=== PATIENT | male | born 1950 | race Caucasian/White ===

== ENCOUNTER 2017-08-20 23:45 | Inpatient (IN) ==
[2017-08-21] MEDS ORDERED: ASPIRIN 325 MG TABLET PO STA (00:56)
[2017-08-21] MEDS ORDERED: NITROGLYCERIN 2% OINT 1 INCH/GM PACK TOP STA (00:58)
[2017-08-21] MEDS ORDERED: MEPERIDINE 25 MG/1 ML VIAL IV STA ×2 (00:58→01:38)
[2017-08-21] MEDS ORDERED: NITROGLYCERIN 2% OINT 1 INCH/GM PACK TOP ONE ×2 (01:24→01:38)
[2017-08-21] MEDS ORDERED: ASPIRIN 325 MG TABLET ONE ×2 (01:25→01:38)
[2017-08-21] MEDS ORDERED: MEPERIDINE 25 MG/1 ML VIAL ONE ×2 (01:25→01:38)
[2017-08-21] MEDS ORDERED: MAGNESIUM SULF RIDER 2 GM in PREMIX 1 EACH IV PRN ×2 (02:21→09:48)
[2017-08-21] MEDS ORDERED: MAGNESIUM SULF RIDER 4 GM in PREMIX 1 EACH IV PRN (02:21)
[2017-08-21 02:23] LABS: Basophils % 0.5 % (0.0-0.8); Eosinophils # 0.1 10*3/uL (0.0-0.87); Eosinophils % 2.6 % (0.00-10.9); Hematocrit 32.2 VOL% (42.0-52.0); Hemoglobin 10.3 GM/DL (14.0-18.0); Immature Granulocytes % 0.2 %; Immature Granulocytes Absolute 0.01 #; Lymphocytes # 1.3 10*3/uL (1.4-4.0); Lymphocytes % 31.3 % (21.2-54.2); Mean Corpuscular Hemoglobin 25 PG (27-34); Mean Corpuscular Volume 76.5 FL (87-102); Mean Platelet Volume 10.5 FL (9.6-12.0); Monocytes # 0.3 10*3/uL (0.11-0.8); Monocytes % 7.4 % (1.7-12.7); Neutrophils # 2.4 10*3/uL (1.4-7.4); Platelet Count 163 T/CUMM (130-400); Red Blood Count 4.21 MC/CUMM (3.8-5.5); Red Cell Distribution Width 14.6 % (9.3-17.3); White Blood Count 4.2 T/CUMM (4-12)
[2017-08-21 02:31] LABS: Bilirubin,Total 0.5 MG/DL (0.2-1.0); Calcium 9.3 MG/DL (8.5-10.1); Osmolality,Calculated 284.4 MOS/KG (273-304); Potassium 3.7 MMOL/L (3.5-5.1)
[2017-08-21] MEDS: MEPERIDINE 50 MG/1 ML VIAL IV PRN ×4 (05:43→20:45)
[2017-08-21] MEDS ORDERED: NITROGLYCERIN SL 0.4 MG TABLET SL PRN (08:41)
[2017-08-21] MEDS ORDERED: CLOPIDOGREL 75 MG TABLET PO SCH ×2 (09:00→09:15)
[2017-08-21 09:14] LABS: Risk Ratio 3.34; VLDL CHOLESTEROL 26.8 MG/DL
[2017-08-21] MEDS ORDERED: POTASSIUM CHLORIDE RIDER 10 MEQ in PREMIX 1 EACH IV PRN (09:48)
[2017-08-21] MEDS ORDERED: diphenhydrAMINE CAP 25 MG CAPSULE PO ONE (09:48)
[2017-08-21] MEDS ORDERED: DIAZEPAM 5 MG TABLET PO ONE (09:48)
[2017-08-21] MEDS ORDERED: ACETAMINOPHEN 325 MG TABLET PO PRN (09:50)
[2017-08-21] MEDS ORDERED: ONDANSETRON 4 MG/2 ML VIAL IV PRN (09:50)
[2017-08-21] MEDS ORDERED: diphenhydrAMINE CAP 25 MG CAPSULE PO PRN (09:50)
[2017-08-21] MEDS ORDERED: DOCUSATE SODIUM 100 MG CAPSULE PO PRN (09:50)
[2017-08-21] MEDS ORDERED: ZALEPLON 5 MG CAPSULE PO PRN (09:50)
[2017-08-21] MEDS ORDERED: guaiFENesin/DM ER 600-30 MG TABLET PO PRN (09:50)
[2017-08-21] MEDS ORDERED: diphenhydrAMINE CAP 50 MG CAPSULE ONE (09:52)
[2017-08-21] MEDS ORDERED: DIAZEPAM 5 MG TABLET ONE (09:53)
[2017-08-21] MEDS: ATORVASTATIN 40 MG TABLET PO SCH (09:56)
[2017-08-21] MEDS: MAGNESIUM OXIDE 400 MG TABLET PO SCH ×2 (09:56→20:44)
[2017-08-21] MEDS: ASPIRIN EC 81 MG TABLET PO SCH (09:56)
[2017-08-21] MEDS: amLODIPine 10 MG TABLET PO SCH (09:56)
[2017-08-21] MEDS: GLIMEPIRIDE 4 MG TABLET PO SCH (09:56)
[2017-08-21 10:08] LABS: INR 1.1; PT Patient Result 11.4 SECS
[2017-08-21] MEDS: DESVENLAFAXINE 50 MG TABLET PO SCH (10:38)
[2017-08-21] MEDS: FENOFIBRATE 160 MG TABLET PO SCH (10:38)
[2017-08-21] MEDS: INSULIN GLARGINE 100 UNIT/ML SUBCUT SCH (10:38)
[2017-08-21] MEDS: RAMIPRIL 5 MG CAPSULE PO SCH (10:38)
[2017-08-21] MEDS: POLYETHYLENE GLYCOL POWDER 17 GM PACK PO SCH (10:42)
[2017-08-21] MEDS ORDERED: MIDAZOLAM 2 MG/2 ML VIAL ONE (11:21)
[2017-08-21] MEDS ORDERED: HYDROmorphone 2 MG/1 ML VIAL ONE (11:21)
[2017-08-21] MEDS ORDERED: NITROGLYCERIN DRIP 50 MG/250 ML BOTTLE IV ONE (11:26)
[2017-08-21] MEDS ORDERED: VERAPAMIL 5 MG/2 ML VIAL ONE (11:26)
[2017-08-21] MEDS ORDERED: ENOXAPARIN 30 MG/0.3 ML SYRINGE ONE (11:30)
[2017-08-21] MEDS ORDERED: BIVALIRUDIN 250 MG VIAL IV ONE (11:34)
[2017-08-21] MEDS ORDERED: CLOPIDOGREL 300 MG TABLET ONE (11:50)
[2017-08-21] MEDS ORDERED: SODIUM CHLORIDE 0.9% 1,000 ML IV SCH (12:00)
[2017-08-21] MEDS: SODIUM CHLORIDE 0.45% 1,000 ML IV SCH ×2 (12:32→17:24)
[2017-08-21] MEDS: METHADONE 10 MG TABLET PO SCH ×2 (14:05→23:25)
[2017-08-21] MEDS: ALPRAZolam 0.5 MG TABLET PO PRN (20:45)
[2017-08-21] MEDS: MORPHINE ER 30 MG TABLET PO SCH (20:49)
[2017-08-22] MEDS: SODIUM CHLORIDE 0.45% 1,000 ML IV SCH ×2 (01:56→10:38)
[2017-08-22] MEDS: MEPERIDINE 50 MG/1 ML VIAL IV PRN (05:01)
[2017-08-22 05:35] LABS: Basophils % 0.9 % (0.0-0.8); Eosinophils # 0.1 10*3/uL (0.0-0.87); Eosinophils % 2.9 % (0.00-10.9); Hematocrit 31.1 VOL% (42.0-52.0); Immature Granulocytes % 0.3 %; Immature Granulocytes Absolute 0.01 #; Lymphocytes # 1.5 10*3/uL (1.4-4.0); Lymphocytes % 44.1 % (21.2-54.2); Mean Corpuscular HGB Conc 32.2 GM/DL (32-36); Mean Corpuscular Hemoglobin 24 PG (27-34); Mean Corpuscular Volume 75.7 FL (87-102); Monocytes # 0.3 10*3/uL (0.11-0.8); Monocytes % 7.8 % (1.7-12.7); Neutrophils # 1.5 10*3/uL (1.4-7.4); Platelet Count 142 T/CUMM (130-400); Red Blood Count 4.11 MC/CUMM (3.8-5.5); Red Cell Distribution Width 14.5 % (9.3-17.3); White Blood Count 3.5 T/CUMM (4-12)
[2017-08-22 06:16] LABS: Blood Urea Nitrogen 13 MG/DL (7-18); Glucose 176 MG/DL (74-106); Magnesium 1.6 MG/DL (1.8-2.4); Osmolality,Calculated 280.5 MOS/KG (273-304); Potassium 3.8 MMOL/L (3.5-5.1); Sodium 139 MMOL/L (136-145); Troponin I Only < 0.015 NG/ML (0.00-0.045)
[2017-08-22] MEDS: METHADONE 10 MG TABLET PO SCH (06:23)
[2017-08-22] MEDS ORDERED: PANTOPRAZOLE 40 MG TABLET PO SCH (09:00)
[2017-08-22] MEDS ORDERED: CLOPIDOGREL 75 MG TABLET PO SCH (09:00)
[2017-08-22] MEDS: RAMIPRIL 5 MG CAPSULE PO SCH (09:19)
[2017-08-22] MEDS: GLIMEPIRIDE 4 MG TABLET PO SCH (09:19)
[2017-08-22] MEDS: FENOFIBRATE 160 MG TABLET PO SCH (09:19)
[2017-08-22] MEDS: MAGNESIUM OXIDE 400 MG TABLET PO SCH (09:19)
[2017-08-22] MEDS: amLODIPine 10 MG TABLET PO SCH (09:20)
[2017-08-22] MEDS: ASPIRIN EC 81 MG TABLET PO SCH (09:20)
[2017-08-22] MEDS: DESVENLAFAXINE 50 MG TABLET PO SCH (09:20)
[2017-08-22] MEDS: INSULIN GLARGINE 100 UNIT/ML SUBCUT SCH (09:21)
[2017-08-22] MEDS: POLYETHYLENE GLYCOL POWDER 17 GM PACK PO SCH (09:21)
[2017-08-22] MEDS: ATORVASTATIN 40 MG TABLET PO SCH (09:21)
[2017-08-22] MEDS: MORPHINE ER 30 MG TABLET PO SCH (09:22)
[2017-08-22] MEDS: ALPRAZolam 0.5 MG TABLET PO PRN (09:33)
[2017-08-22] MEDS ORDERED: CARVEDILOL 3.125 MG TABLET PO SCH (11:00)
[2017-08-22 11:44] VITALS: BP 161/66
== END 2017-08-22 14:08 | disposition home or self-care (01) | DRG 251 ==
LOC: EDBD → EDUNIT# → N.ED 23:45 → N.EDINP 08-21 02:21 → N.TELES 08-21 02:55
PROVIDERS: ADMIT Internal Medicine Cardiovascular Disease; ATTEND Internal Medicine Cardiovascular Disease